=== PATIENT | female | born 1965 | race Caucasian/White ===

== ENCOUNTER 2017-10-31 09:38 | Day surgery (SDC) | payer BC, OTHER ==
[2017-10-30 09:27] VITALS: BMI 27.4
[~2017-10-31 09:38] MED LIST: LACTATED RINGERS 1,000 ML IV SCH
[2017-10-31 10:25] VITALS: TEMP 98.3
[2017-10-31] MEDS ORDERED: LIDOCAINE 1% 20 ML VIAL (10MG/ML) FOR IV START INTRADERMA ONE (10:26)
[2017-10-31] MEDS ORDERED: LACTATED RINGERS 1,000 ML IV ONE (10:26)
--- NOTE | 2017-10-31 11:20 | P.PCN ---
Date of Procedure: 10/31/17 Procedure(s) Performed: BRIEF HISTORY: Patient is a 52-year-old, pleasant, white female, scheduled for an upper endoscopy as a part of evaluation of long-standing history of GERD and epigastric pain for the last 2 years duration. She takes Pepcid occasionally.. PROCEDURE PERFORMED: Esophagogastroduodenoscopy with biopsy. PREOPERATIVE DIAGNOSIS: Long-standing history of GERD and epigastric pain. IV sedation per anesthesia. PROCEDURE: After informed consent was obtained, the patient was brought into the endoscopy unit. IV sedation was administered by Anesthesia under continuous monitoring. Initially the Olympus GIF-140 video endoscope was inserted into the mouth. Esophagus intubated without any difficulty. It was gradually advanced into the stomach and duodenum and carefully examined. The bulb and the second part of the duodenum appeared normal. The scope at this time was withdrawn to the stomach, adequately insufflated with air, and upon careful examination, mucosa of the antrum, appeared normal. In the proximal body of the stomach there was a 5 mm polyp that was removed by biopsy. The rest of the body, cardia and the fundus appeared normal. The scope was then withdrawn into the esophagus. Small hiatal hernia noted. The GE junction was located at 37 cm from the incisors. There were linear erosions in the distal esophagus consistent with LA grade B reflux esophagitis. Rest of esophagus appeared normal thee patient tolerated the procedure well. IMPRESSION: 1. Linear erosions in the distal esophagus consistent with LA grade B reflux esophagitis. 2. Small sliding type hernia. 3. Small gastric polyp status post biopsy RECOMMENDATIONS: The findings of this examination were discussed with the patient as well his family. She was advised to stop Pepcid and she was given a perception for Prilosec 20 mg daily to be taken half hour before breakfast and follow antireflux measures.
[2017-10-31 11:25] VITALS: RESP 16
[2017-10-31 11:33] VITALS: BP 151/76; PULSE 56
== END 2017-10-31 12:28 | disposition home or self-care (01) ==
LOC: ORWHC2ENDO 09:38
PROVIDERS: ATTEND Internal Medicine Gastroenterology
DX: K31.7 Polyp of stomach and duodenum (principal); K20.0 Eosinophilic esophagitis; K21.9 Gastro-esophageal reflux disease without esophagitis; K44.9 Diaphragmatic hernia without obstruction or gangrene; Z90.710 Acquired absence of both cervix and uterus
CPT/HCPCS: 43239; 88305

== ENCOUNTER → 2017-11-26 | Outpatient (CLI) | payer BC ==
--- NOTE | 2017-11-26 07:56 | MR ---
EXAMINATION TYPE: MR lumbar spine wo con DATE OF EXAM: 11/26/2017 COMPARISON: NONE HISTORY: Radiculopathy, lumbosacral region TECHNIQUE: Multiplanar, multisequence images of the lumbar spine were acquired. FINDINGS: The lumbar vertebral bodies maintain normal vertebral body heights and alignment. Bone valdemar ow signal is unremarkable. Conus medullaris is also unremarkable in signal and morphology. Conus medu llaris terminates at T12-L1. Multilevel intervertebral disc desiccation is seen from L2 through S1. L1-L2: Normal disc appearance without desiccation. No herniation, protrusion or disc bulging. No ca nal stenosis is present. Foramina are patent bilaterally. L2-L3: There is a small broad-based disc bulge and mild facet arthropathy without neural foraminal na rrowing or spinal canal stenosis. L3-L4: Disc desiccation is seen with a punctate central annular tear. No focal disc herniation, neura l foraminal narrowing or spinal canal stenosis. Minimal facet arthropathy. L4-L5: There is mild facet arthropathy, a broad-based disc bulge, and minimal ligamentum flavum buckl ing without significant spinal canal stenosis or neuroforaminal narrowing. L5-S1: There is disc desiccation, a broad-based disc bulge, and mild facet arthropathy without spinal canal stenosis or neural foraminal narrowing. IMPRESSION: Mild multilevel degenerative disc disease with desiccation from L2 through S1. However no focal disc herniation, spinal canal stenosis or neural foraminal narrowing is seen. Small annular tear is presen t as L3-L4, which may progress to a disc herniation.
== END | disposition home or self-care (01) ==
LOC: RADMRIMAIN 06:31
PROVIDERS: ATTEND Family Medicine
DX: M51.17 Intervertebral disc disorders with radiculopathy, lumbosacral region (principal)
CPT/HCPCS: 72148

== ENCOUNTER → 2018-07-15 | Outpatient (CLI) | payer OTHER ==
--- NOTE | 2018-07-18 09:31 | MM ---
Reason for exam: screening (asymptomatic). Last mammogram was performed 1 year and 1 month ago. History: Family history of breast cancer in aunt. Benign excisional biopsy of the right breast, 1988. MG Screening Mammo w CAD Bilateral CC and MLO view(s) were taken. Prior study comparison: June 13, 2017, bilateral MG screening mammo w CAD. May 24, 2016, bilateral MG screening mammo w CAD. The breast tissue is heterogeneously dense. This may lower the sensitivity of mammography. No discrete abnormality. ASSESSMENT: Negative, BI-RAD 1 RECOMMENDATION: Routine screening mammogram of both breasts in 1 year.
== END | disposition home or self-care (01) ==
LOC: RADMAMWWP 09:33
PROVIDERS: ATTEND Internal Medicine
DX: Z12.31 Encounter for screening mammogram for malignant neoplasm of breast (principal)
CPT/HCPCS: 77067

== ENCOUNTER → 2020-07-12 | Outpatient (CLI) | payer OTHER ==
--- NOTE | 2020-07-14 14:15 | MM ---
Reason for exam: screening (asymptomatic). Last mammogram was performed 2 years ago. History: Family history of breast cancer in aunt at age 55 and breast cancer in aunt at age 70. Benign excisional biopsy of the right breast, 1988. Physical Findings: A clinical breast exam by your physician is recommended on an annual basis and results should be correlated with mammographic findings. MG Screening Mammo w CAD Bilateral CC and MLO view(s) were taken. Prior study comparison: July 15, 2018, bilateral MG screening mammo w CAD. June 13, 2017, bilateral MG screening mammo w CAD. There are scattered fibroglandular densities. Anterior inferior asymmetric density right MLO view is more defined. No clear correlate on the CC view. ASSESSMENT: Incomplete: need additional imaging evaluation, BI-RAD 0 RECOMMENDATION: Special view mammogram of the right breast. (3D) If lesion persists on supplemental views, image directed ultrasound is recommended. [facility] will attempt to contact patient to return for supplemental views and ultrasound if indicated.
== END | disposition home or self-care (01) ==
LOC: RADMAMWWP 15:55
PROVIDERS: ATTEND Family Medicine
DX: Z12.31 Encounter for screening mammogram for malignant neoplasm of breast (principal)
CPT/HCPCS: 77067

== ENCOUNTER → 2020-07-26 | Outpatient (CLI) | payer OTHER ==
--- NOTE | 2020-07-27 08:48 | MM ---
Reason for exam: additional evaluation requested from abnormal screening. Last mammogram was performed less than 1 month ago. History: Family history of breast cancer in aunt at age 55 and breast cancer in aunt at age 70. Benign excisional biopsy of the right breast, 1988. Physical Findings: Nurse did not find any significant physical abnormalities on exam. MG Work Up Mamm w CAD RT Spot compression CC, spot compression MLO, and LM view(s) were taken of the right breast. Prior study comparison: July 12, 2020, bilateral MG screening mammo w CAD. July 15, 2018, bilateral MG screening mammo w CAD. The breast tissue is heterogeneously dense. This may lower the sensitivity of mammography. No significant new findings when compared with previous films. These results were verbally communicated with the patient and result sheet given to the patient on 07/26/20. ASSESSMENT: Benign, BI-RAD 2 RECOMMENDATION: Return to routine screening mammogram schedule for both breasts.
== END | disposition home or self-care (01) ==
LOC: RADMAMWWP 14:53
PROVIDERS: ATTEND Family Medicine
DX: R92.8 Other abnormal and inconclusive findings on diagnostic imaging of breast (principal)
CPT/HCPCS: 77065